=== PATIENT | male | born 1965 | race Caucasian/White ===

== ENCOUNTER 2024-02-06 17:30 | Emergency (ER) | payer OTHER ==
[2024-02-06] MEDS ORDERED: Acetaminophen 325 MG TAB ONE (18:25)
== END 2024-02-06 19:22 | disposition home or self-care (01) ==
LOC: CSHERS 17:30
DX: M25.551 Pain in right hip (principal); M54.50 Low back pain, unspecified; M79.671 Pain in right foot; Z79.899 Other long term (current) drug therapy; I50.9 Heart failure, unspecified; I11.0 Hypertensive heart disease with heart failure; F17.210 Nicotine dependence, cigarettes, uncomplicated
CPT/HCPCS: 72100; 99283